=== PATIENT | male | born 1960 | race Caucasian/White ===

== ENCOUNTER → 2019-07-05 11:50 | Outpatient (CLI) | payer OTHER, SELFPAY ==
--- NOTE | 2019-07-05 | DI.US.S_ITS ---
PROCEDURE: US PERIPH VENOUS LOW EXTREM LT INDICATIONS: PAIN TECHNIQUE: Real-time imaging, as well as color and pulse Doppler interrogation, were performed of the lower extremity deep veins from the inguinal ligament to the popliteal fossa. COMPARISON: None. FINDINGS: The common femoral, femoral and popliteal veins are normally compressible, and free of intraluminal thrombus. Color and pulse Doppler demonstrate normal phasic intraluminal flow. There is normal augmentation response to distal compression maneuver. IMPRESSION: No DVT found left leg. Dictated by: Jackson Lowe M.D. on 07/05/2019 at 14:17 Approved by: Jackson Lowe M.D. on 07/05/2019 at 14:18
== END ==
PROVIDERS: PCP Family Medicine; Referring Provider Family Medicine; Visit Provider Family Medicine
DX: M79.662 Pain in left lower leg (principal)
CPT/HCPCS: 93971

== ENCOUNTER → 2022-04-17 10:29 | Outpatient (CLI) | payer OTHER, SELFPAY ==
--- NOTE | 2022-04-17 10:32 | DI.RAD.S_ITS ---
PROCEDURE: XR SHOULDER LT MIN 2V INDICATIONS: left shoulder pain TECHNIQUE: 3 views of the shoulder were acquired. COMPARISON: [facility], XR CXR OCCUPATIONAL, 12/24/1991, 15:33. FINDINGS: Bones: No fractures or dislocations. No suspicious bony lesions. Visualized ribs appear intact. Moderate acromioclavicular and mild glenohumeral joint space narrowing with periarticular osteophyte formation. Soft tissues: No suspicious soft tissue calcifications. IMPRESSION: 1. 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 Dictated by: Jose Eduardo Horta [facility] Interpreted: Dayana Steward MD on 04/17/2022 at 11:01 Transcribed by: FABIAN on 04/17/2022 at 11:02 Approved by: Dayana Steward M.D. on 04/17/2022 at 12:34
== END ==
PROVIDERS: PCP Family Medicine; Referring Provider Family Medicine; Visit Provider Family Medicine
DX: M25.512 Pain in left shoulder (principal); M19.012 Primary osteoarthritis, left shoulder
CPT/HCPCS: 73030

== ENCOUNTER → 2022-12-06 10:40 | Outpatient (CLI) | payer OTHER, SELFPAY ==
--- NOTE | 2022-12-06 | DI.MRI.S_ITS ---
PROCEDURE: MR SHOULDER LT W CON INDICATIONS: LEFT SHOULDER PAIN TECHNIQUE: After the administration of 12 mL of dilute intra-articular Gadolinium contrast, oblique coronal T1 and T2 spin echo with fat saturation, oblique sagittal T1 spin echo with and without fat saturation, oblique sagittal T2 fast spin echo with fat saturation, axial T1 spin echo with fat saturation through the shoulder. COMPARISON: [facility], CR, XR SHOULDER LT MIN 2V, 04/17/2022, 10:45. [facility], RF, [place] SHOULDER INJECTION MR/CT LT, 12/06/2022, 10:58. FINDINGS: Image quality: Excellent. Rotator cuff: Severe supraspinatus tendinosis with partial-thickness tear along the articular surface and footprint. Mild infraspinatus and subscapularis tendons without discrete tendon tear. No rotator cuff muscle atrophy on sagittal images. Bones and bursae: No bone marrow contusions or fractures. Mild acromioclavicular joint degeneration. The acromion demonstrates conventional anatomy, without an os acromiale. Capsule and soft tissues: There is a SLAP lesion at the biceps anchor. The glenohumeral ligaments appear intact. Moderate tendinosis of the long head of the biceps tendon which demonstrates normal location and morphology. The rotator interval appears normal, without fibrosis. The coracohumeral ligament is of normal thickness. No intra-articular bodies. IMPRESSION: 1. Severe supraspinatus tendinosis with partial tear involving the articular surface and footprint. 2. Mild infraspinatus and subscapularis tendinosis. 3. SLAP lesion at the biceps anchor. 4. Mild acromioclavicular joint arthrosis. Dictated by: Petrona Fine M.D. on 12/06/2022 at 17:09 Approved by: Petrona Fine M.D. on 12/06/2022 at 22:28
--- NOTE | 2022-12-06 | DI.RAD.S_ITS ---
PROCEDURE: [place] SHOULDER INJECTION MR/CT LT INDICATIONS: LEFT SHOULDER PAIN COMPARISON: [facility], CR, XR SHOULDER LT MIN 2V, 04/17/2022, 10:45. TECHNIQUE: The indications, alternatives, benefits, risks, and complications of the procedure were explained to the patient. Written informed consent was obtained and placed in the chart. The shoulder was examined fluoroscopically and a site for needle placement chosen for entry into the glenohumeral joint from an anterior approach. The skin was prepped and draped in a sterile fashion, and 1% lidocaine infiltrated from skin down to joint capsule. A spinal needle was inserted into the glenohumeral joint, and a small amount of iodinated contrast media injected to confirm intra-articular placement of the needle tip. This was followed by approximately 12 mL dilute solution of a gadolinium containing MR contrast agent. The needle was removed and a dressing was applied. The patient was given postprocedural instructions and sent to the MR suite for MR imaging. FINDINGS: A single fluoroscopic spot image demonstrates intra-articular location of injected iodinated contrast. IMPRESSION: Successful fluoroscopically guided administration of dilute Gadolinium solution into the shoulder joint for MR arthrogram. Dictated by: Petrona Fine M.D. on 12/06/2022 at 17:11 Approved by: Petrona Fine M.D. on 12/06/2022 at 17:12
[2022-12-06] MEDS: SODIUM CHLORIDE 0.9 % 20 ML VIAL IV (11:20)
[2022-12-06] MEDS: LIDOCAINE 1% 20 ML INJ (11:20)
== END ==
PROVIDERS: PCP Family Medicine; Referring Provider Orthopaedic Surgery; Visit Provider Orthopaedic Surgery
DX: M75.42 Impingement syndrome of left shoulder (principal); M19.012 Primary osteoarthritis, left shoulder; S43.432A Superior glenoid labrum lesion of left shoulder, initial encounter; M75.112 Incomplete rotator cuff tear or rupture of left shoulder, not specified as traumatic
CPT/HCPCS: 23350; 73222; A9270